=== PATIENT | male | born 1985 | race Caucasian/White ===

== ENCOUNTER 2020-06-10 11:35 | Emergency (ER) | payer OTHER ==
[~2020-06-10] VITALS: Ht 182.9 cm; Wt 90.7 kg
[2020-06-10] MEDS ORDERED: LOSARTAN POTASS50 MG (11:44)
== END 2020-06-10 16:08 | disposition home or self-care (01) ==
LOC: ER 11:35
DX: U07.1 COVID-19 (principal); M94.0 Chondrocostal junction syndrome [Tietze]; R07.89 Other chest pain